=== PATIENT | male | born 1985 | race Caucasian/White ===

== ENCOUNTER 2019-10-25 17:32 | Emergency (ER) | payer OTHER ==
--- NOTE | 2019-10-25 18:28 | CT ---
CT Abdomen Pelvis WO Con History: Left flank pain Comparison: None. Findings: Lung bases are clear. No pericardial effusion. The noncontrast evaluation of the liver, gal lbladder, spleen, pancreas are unremarkable. Low-grade proximal small bowel mesenteric edema with small lymph nodes likely chronic as enteritis. The appendix is visualized and is normal. No free intraperitoneal gas or fluid. No nephroureterolithiasis no or hydroureteronephrosis. No secondary evidence of a recently passed sto ne. There is an abnormal density on the posterior urinary bladder wall axial image 71 which is somewhat s oft tissue density and noncalcified measuring 5-6 mm. Impression: 1. No nephroureterolithiasis or hydroureteronephrosis. No secondary evidence of a recently passed sto ne. 2. Chronic proximal small bowel mesenteritis. 3. 5-6 mm soft tissue density along the posterior urinary bladder wall within the bladder lumen. This is felt to be real and not an artifact. Recommend direct visualization with cystoscopy versus CT cystogram.
[2019-10-25 19:01] LABS: Bilirubin Negative (Negative); Blood, Urine Large (Negative); Glucose, Urine (Dipstick) Negative (Negative); Ketone, Urine Negative (Negative); Leukocyte Negative (Negative); Nitrite Negative (Negative); Protein, Urine (Dipstick) Negative (Neg-Trace); Urobilinogen 0.2 mg/dL (Less than 2)
[2019-10-25 19:06] LABS: Clarity Hazy (Clear)
[2019-10-25 19:07] LABS: Bacteria/HPF Rare-Few HPF (None Seen); Squamous Epithelial None Seen HPF (0-3); WBC/HPF 0-3 HPF (0-3)
== END 2019-10-25 19:10 | disposition home or self-care (01) ==
LOC: MADERS 17:32
DX: R31.0 Gross hematuria (principal); I10 Essential (primary) hypertension; K21.9 Gastro-esophageal reflux disease without esophagitis
CPT/HCPCS: 74176; 81003; 81015

== ENCOUNTER 2021-04-08 08:01 | Emergency (ER) | payer OTHER | END 2021-04-08 09:15 | disposition home or self-care (01) | LOC: MADERS 08:01 | DX: S43.005A Unspecified dislocation of left shoulder joint, initial encounter (principal); M75.92 Shoulder lesion, unspecified, left shoulder; K21.9 Gastro-esophageal reflux disease without esophagitis; I10 Essential (primary) hypertension; W18.30XA Fall on same level, unspecified, initial encounter ==